=== PATIENT | male | born 1950 | race Caucasian/White ===

== ENCOUNTER → 2018-07-29 | Outpatient (CLI) | payer OTHER ==
--- NOTE | 2018-07-29 13:45 | PCVCIMAG ---
APPROVED REPORT Indications Stenosis Doppler Spectral Velocity Analysis PSV / EDVPSV / EDV ECA (R) 107 / 9 cm/sECA (L) 123 / 14 cm/s dICA (R) 65 / 25 cm/sdICA (L) 67 / 18 cm/s Nevaeh (R) 59 / 13 cm/smICA (L) 63 / 19 cm/s pICA (R) 65 / 12 cm/spICA (L) 82 / 18 cm/s Bulb (R) 79 / 16 cm/sBulb (L) 59 / 15 cm/s dCCA (R) 92 / 16 cm/sdCCA (L) 101 / 22 cm/s mCCA (R) 91 / 16 cm/smCCA (L) 109 / 16 cm/s Vert (R) 47 / 12 cm/sVert (L) 39 / 10 cm/s ICA/CCA 0.71ICA/CCA 0.81 Basic Measurements Blood Pressure: Pulses: Right Left RightLeft Brachial(Sitting) 118/93mxCm530/70mmHgTemporal Real Time B-Mode Imaging Vert. (R)AntegradeVert. (L)Antegrade Findings The right carotid bulb has mild plaque. The right proximal internal carotid artery shows no significant stenosis. The right common carotid artery shows no significant stenosis. The right external carotid artery shows no significant stenosis. The left carotid bulb has moderate calcified plaque. The left proximal internal carotid artery shows <40% stenosis. The left common carotid artery shows no significant stenosis. The left external carotid artery shows no significant stenosis. Conclusion 1. Right internal carotid artey plaquing without significant stenosis 2. Left internal carotid artery stenosis (<40%) 3. Antegrade vertebral flow Similar to 2015
--- NOTE | 2018-07-29 15:55 | PCVCIMAG ---
APPROVED REPORT Study performed: 07/29/2018 14:15:55 EXAM: Comprehensive 2D, Doppler, and color-flow Echocardiogram Patient Location: Echo lab Status: routine BSA: 2.04 HR: 56 bpmBP: 118/76 mmHg Rhythm: NSR Other Information Study Quality: Good Risk Factors: Cardiac Risk Factors: HTN, Hyperlipidemia Indications CAD S/P CABG x4 (2001) 2D Dimensions IVSd: 10.65 (7-11mm)LVOT Diam: 19.00 (18-24mm) LVDd: 49.75 mm PWd: 9.22 (7-11mm)Ascending Ao: 32.02 (22-36mm) LVDs: 31.90 (25-40mm) Left Atrium: 42.65 (27-40mm) Aortic Root: 27.24 mm LV Single Plane 4CH: 61.97 % LV Single Plane 2CH: 68.30 % Biplane EF: 64.4 % Volumes Left Atrial Volume (Systole) Single Plane 4CH: 41.67 mLSingle Plane 2CH: 57.24 mL LA ESV Index: 27.00 mL/m2 Aortic Valve AoV Peak Alexis.: 1.53 m/s AO Peak Gr.: 9.39 mmHgLVOT Max P.22 mmHg LVOT Max V: 1.03 m/s JUJU Vmax: 1.94 cm2 AI Vmax: 3.84 m/s AI Baraga: 1.47 m/s2 AI PHT: 758.22 ms Mitral Valve E/A Ratio: 0.8 MV Decel. Time: 362.95 ms MV E Max Alexis.: 0.49 m/s MV A Alexis.: 0.64 m/s MV PHT: 105.26 ms IVRT: 48.44 ms TDI E/Lateral E': 5.44E/Medial E': 5.44 Medial E' Alexis.: 0.09 m/s Lateral E' Alexis.: 0.09 m/s Pulmonary Valve PV Peak Alexis.: 0.90 m/sPV Peak Gr.: 3.27 mmHg Pulmonary Vein P Vein S: 0.56 m/sP Vein A: 0.33 m/s P Vein D: 0.49 m/sP Vein A Dur.: 96.9 msec P Vein S/D Ratio: 1.14 Tricuspid Valve TR Peak Alexis.: 2.32 m/sRAP Estimate: 7.00 mmHg TR Peak Gr.: 21.51 mmHg PA Pressure: 29.00 mmHg Left Ventricle The left ventricle is normal size. There is normal LV segmental wall motion. There is normal left ventricular wall thickness. Left ventricular systolic function is normal. The left ventricular ejection fraction is within the normal range. LVEF is 65%. Grade I - abnormal relaxation pattern. Right Ventricle The right ventricle is normal size. The right ventricular systolic function is normal. Atria The left atrium size is normal. The right atrium size is normal. Aortic Valve The aortic valve is mildly sclerotic, trileaflet. Mild to moderate aortic regurgitation. There is no aortic valvular stenosis. Mitral Valve The mitral valve is normal in structure. Mild mitral regurgitation. No evidence of mitral valve stenosis. Tricuspid Valve The tricuspid valve is normal in structure. Trace tricuspid regurgitation. Pulmonary artery pressure is 30 mmHg. Pulmonic Valve The pulmonary valve is normal in structure. Trace pulmonic regurgitation. Great Vessels The aortic root is normal in size. IVC is normal in size and collapses >50% with inspiration. Pericardium There is no pericardial effusion. <Conclusion> Left ventricular systolic function is normal. There is normal LV segmental wall motion. LVEF is 65%. Mild diastolic dysfunction The aortic valve is mildly sclerotic, trileaflet. Mild to moderate aortic regurgitation. The mitral valve is normal in structure. Mild mitral regurgitation. Trace tricuspid regurgitation. Pulmonary artery pressure is 30 mmHg. There is no pericardial effusion.
== END | disposition home or self-care (01) ==
LOC: PCVCIMAG 13:08
PROVIDERS: ATTEND Internal Medicine
DX: I08.0 Rheumatic disorders of both mitral and aortic valves (principal); I65.23 Occlusion and stenosis of bilateral carotid arteries; I10 Essential (primary) hypertension; R42 Dizziness and giddiness; R09.89 Other specified symptoms and signs involving the circulatory and respiratory systems; I25.118 Atherosclerotic heart disease of native coronary artery with other forms of angina pectoris; E78.5 Hyperlipidemia, unspecified; Z95.1 Presence of aortocoronary bypass graft
CPT/HCPCS: 93306; 93880

== ENCOUNTER → 2019-01-27 | Outpatient (CLI) | payer MEDICARE | END | disposition home or self-care (01) | LOC: PCVCCLINIC 14:00 | PROVIDERS: ATTEND Internal Medicine | DX: I25.118 Atherosclerotic heart disease of native coronary artery with other forms of angina pectoris (principal); I10 Essential (primary) hypertension; E78.5 Hyperlipidemia, unspecified; I65.23 Occlusion and stenosis of bilateral carotid arteries; Z95.1 Presence of aortocoronary bypass graft | CPT/HCPCS: 36415; 80061; 93005; G0463 ==

== ENCOUNTER → 2019-07-26 | Outpatient (CLI) | payer MEDICARE | END | disposition home or self-care (01) | LOC: PCVCCLINIC 14:00 | PROVIDERS: ATTEND Internal Medicine | DX: I25.118 Atherosclerotic heart disease of native coronary artery with other forms of angina pectoris (principal); I10 Essential (primary) hypertension; E78.5 Hyperlipidemia, unspecified; I65.23 Occlusion and stenosis of bilateral carotid arteries; Z95.1 Presence of aortocoronary bypass graft; Z79.82 Long term (current) use of aspirin; Z79.899 Other long term (current) drug therapy | CPT/HCPCS: 36415; 80061; 93005; G0463 ==